=== PATIENT | female | born 2000 ===

== ENCOUNTER → 2024-08-04 | Outpatient (CLI) | payer BC ==
[2024-08-04 13:15] LABS: BASOPHILS ABSOLUTE AUTO 0.02 K/mm3 (0.00-0.23); BASOPHILS PERCENT AUTO 0 % (0-2); EOSINOPHILS PERCENT AUTO 0 % (0-6); Hematocrit 32.4 % (33.0-51.0); Hemoglobin 10.7 g/dL (11.5-16.0); IMMATURE GRAN ABSOLUTE AUTO 0.06 K/mm3 (0.00-0.10); IMMATURE GRAN PERCENT AUTO 1 % (0-1); LYMPHOCYTES ABSOLUTE AUTO 1.45 K/mm3 (0.84-5.20); LYMPHOCYTES PERCENT AUTO 16 % (21-46); MONOCYTES ABSOLUTE AUTO 0.67 K/mm3 (0.16-1.47); MONOCYTES PERCENT AUTO 7 % (4-13); Mean Corpuscular HGB 28.4 pg (26.0-34.0); Mean Corpuscular Volume 86 fL (80-100); Mean Platelet Volume 10.3 fL (9.1-12.4); NEUTROPHILS ABSOLUTE AUTO 7.05 K/mm3 (1.96-9.15); NEUTROPHILS PERCENT AUTO 76 % (41-73); Platelet Count 267 K/mm3 (150-400); RDW Coefficient Variation 13.3 % (11.7-14.2); RDW Standard Deviation 41.4 fL (35.1-46.3); Red Blood Cell Count 3.77 M/mm3 (3.80-5.20); White Blood Cell Count 9.25 K/mm3 (4.00-11.30)
== END | disposition home or self-care (01) ==
LOC: LAB 12:05 → LAB SHORT 12:05
PROVIDERS: Family Medicine
DX: Z34.83 Encounter for supervision of other normal pregnancy, third trimester (principal); Z3A.28 28 weeks gestation of pregnancy
CPT/HCPCS: 85025

== ENCOUNTER 2024-08-30 00:56 | Day surgery (SDC) | payer BC ==
[2024-08-30 16:11] VITALS: BP 126/70
[2024-08-30] MEDS ORDERED: IRON SUCROSE COMPLEX IV SCH (16:15)
[2024-08-30] MEDS ORDERED: NS IV SCH (16:15)
== END 2024-08-30 17:35 | disposition home or self-care (01) ==
LOC: ATC 00:56
DX: D50.9 Iron deficiency anemia, unspecified (principal); Z79.899 Other long term (current) drug therapy
CPT/HCPCS: 96365; J1756

== ENCOUNTER 2024-09-08 03:18 | Day surgery (SDC) | payer BC ==
[2024-09-08] MEDS ORDERED: NS IV SCH (06:00)
[2024-09-08] MEDS ORDERED: IRON SUCROSE COMPLEX IV SCH (06:00)
[2024-09-08 10:01] VITALS: BP 106/56
== END 2024-09-08 10:53 | disposition home or self-care (01) ==
LOC: ATC 03:18
DX: O99.012 Anemia complicating pregnancy, second trimester (principal); D50.9 Iron deficiency anemia, unspecified; Z3A.24 24 weeks gestation of pregnancy; Z79.890 Hormone replacement therapy
CPT/HCPCS: 96365; J1756

== ENCOUNTER 2024-09-13 03:54 | Day surgery (SDC) | payer BC ==
[2024-09-13] MEDS ORDERED: NS IV SCH (06:00)
[2024-09-13] MEDS ORDERED: IRON SUCROSE COMPLEX IV SCH (06:00)
[2024-09-13 10:27] VITALS: BP 112/63
== END 2024-09-13 11:07 | disposition home or self-care (01) ==
LOC: ATC 03:54
DX: D50.9 Iron deficiency anemia, unspecified (principal); Z79.899 Other long term (current) drug therapy
CPT/HCPCS: 96365; J1756

== ENCOUNTER → 2024-10-04 | Outpatient (CLI) | payer BC | LOC: LAB SHORT 17:34 → LAB 17:34 | DX: Z34.83 Encounter for supervision of other normal pregnancy, third trimester (principal); Z3A.36 36 weeks gestation of pregnancy | CPT/HCPCS: 87081; 87150 ==

== ENCOUNTER 2024-11-22 06:26 | Emergency (ER) | payer BC ==
[~2024-11-22] VITALS: Ht 167.6 cm; Wt 68.0 kg
[2024-11-22 08:46] LABS: Source, Urine Clean Catch
[2024-11-22 08:52] LABS: Bilirubin, Urine Neg (Neg); Color, Urine Yellow (P-Yellow); Glucose Qualitative, Urine Neg (Neg); Ketones, Urine Neg (Neg); Leukocyte Esterase, Urine 2+ (Neg); Protein, Urine 1+ (Neg); Specific Gravity, Urine 1.020 (1.003-1.022); Urobilinogen, Urine NORM (Normal)
== END 2024-11-22 09:05 | disposition home or self-care (01) ==
LOC: ER 06:26
PROVIDERS: Physician Assistant
DX: O86.4 Pyrexia of unknown origin following delivery (principal)
CPT/HCPCS: 81001; 87086; 99283

== ENCOUNTER → 2024-12-05 | Outpatient (CLI) | payer BC | END | disposition home or self-care (01) | LOC: LAB SHORT 11:48 → LAB 11:48 | PROVIDERS: Family Medicine | DX: Z12.4 Encounter for screening for malignant neoplasm of cervix (principal) | CPT/HCPCS: 87624; G0123; G0145 ==